=== PATIENT | female | born 1990 | race African-American/Black ===

== ENCOUNTER → 2022-02-02 | Outpatient (CLI) | payer MEDICAID, SELFPAY ==
--- NOTE | 2022-02-02 10:24 | US_ITS ---
STUDY: SECOND AND THIRD TRIMESTER OBSTETRICAL ULTRASOUND: Baby A REASON FOR EXAM: Female, 31 years old anatomy, twins, rule out accreta LMP: 07/18/2021. TECHNIQUE: Transabdominal TECHNICAL QUALITY: Adequate. PRIOR ULTRASOUND: None. FINDINGS: There is aThe fetus is in an transverse lie with the head on the maternal left side. There is demonstrated cardiac activity with a heart rate of 147 bpm. There is a normal amniotic fluid volume. The largest amniotic fluid pocket measures 7.1 cm x 3.9 cm. The amniotic fluid index (EROS) is within normal limits. The placenta is posterior in location and is not low lying. There are Grade 0 placental changes. The cervix measures 4.4 cm in length. The adnexal regions are not visualized. BIOMETRY: BPD: 5.13 cm: 21 weeks, 4 days HC: 19.66 cm: 21 weeks, 6 days AC: 17.9 cm: 22 weeks, 5 days FL: 3.88 cm: 22 weeks, 3 days CI: 72.9% FL/BPD: 75.7% FL/HC: FL/AC: 21.7% HC/AC: 1.1 age by current US: 21 weeks, 6 days. MAI by current US: 06/09/2022. Estimated weight: 512 grams, +/- 77 grams, 1 %. Age by LMP: 28 weeks, 3 days. MAI by LMP: 04/24/2022. ANATOMY: Gender: Female Cranium: Normal lateral ventricles. Normal choroid plexus. Normal cerebellum. Normal cisterna magna. Normal face, nose and lips. Chest: Normal 4-chamber heart. Abdomen/Pelvis: Normal diaphragm. Normal stomach. Normal abdominal wall. Normal cord insertion. Normal 3 vessel cord. Normal kidneys. Normal bladder. Spine: Normal cervical spine. Normal thoracic spine. Normal lumbar spine. Normal sacrum. Extremities: Normal bilateral upper extremities. Normal bilateral lower extremities. IMPRESSION: There is a twin gestation. Twin A has a mean gestational age of 21 weeks and 6 days. Electronically Signed: Raulito Sanchez MD at 9:11 EDT , STUDY: SECOND AND THIRD TRIMESTER OBSTETRICAL ULTRASOUND: Baby B REASON FOR EXAM: Female, 31 years old anatomy, twins, rule out accreta LMP: 04/24/2022. TECHNIQUE: Transabdominal TECHNICAL QUALITY: Adequate. PRIOR ULTRASOUND: None. FINDINGS: There is a single intrauterine fetus. The fetus is in a variable presentation. There is demonstrated cardiac activity with a heart rate of 131 bpm. There is a normal amniotic fluid volume. The largest amniotic fluid pocket measures 10.3 cm x 4.9 cm. The amniotic fluid index (EROS) is within normal limits. The placenta is posterior in location and is not low lying. There are Grade 0 placental changes. The cervix measures 4.4 cm in length. The adnexal regions are not visualized. BIOMETRY: BPD: 5.38 cm: 22 weeks, 3 days HC: 20.7 cm: 22 weeks, 5 days AC: 18.8 cm: 23 weeks, 4 days FL: 3.99 cm: 22 weeks, 6 days CI: 73.9% FL/BPD: 74.2% FL/HC: FL/AC: 21.3% HC/AC: 1.1 age by current US: 22 weeks, 4 days. MAI by current US: 06/04/2022. Estimated weight: 571 grams, +/- 87 grams, 1 %. Age by LMP: 28 weeks, 3 days. MAI by LMP: 04/24/2022. ANATOMY: Gender: Female Cranium: Normal lateral ventricles. Normal choroid plexus. Normal cerebellum. Normal cisterna magna. Normal face, nose and lips. Chest: Normal 4-chamber heart. Abdomen/Pelvis: Normal diaphragm. Normal stomach. Normal abdominal wall. Normal cord insertion. Normal 3 vessel cord. Normal kidneys. Normal bladder. Spine: Normal cervical spine. Normal thoracic spine. Normal lumbar spine. Normal sacrum. Extremities: Normal bilateral upper extremities. Normal bilateral lower extremities. IMPRESSION: There is a twin gestation. Twin B estimated gestational age of 22 weeks and 4 days. Electronically Signed: Raulito Sanchez MD at 9:15 EDT , STUDY: FIRST TRIMESTER OBSTETRICAL ULTRASOUND REASON FOR EXAM: Female, 31 years old. Cervical length. LMP: 04/24/2022. TECHNIQUE: Transvaginal TECHNICAL QUALITY: Adequate. PRIOR ULTRASOUND: None. FINDINGS: Cervical length measures 4.4 cm. US/OB Anatomy Scan IMPRESSION: Cervical length measures 4.4 cm. Electronically Signed: Raulito Sanchez MD at 9:15 EDT ,
== END | disposition home or self-care (01) ==
LOC: US 10:24
PROVIDERS: Referring Provider Obstetrics & Gynecology; Visit Provider Obstetrics & Gynecology
DX: O30.003 Twin pregnancy, unspecified number of placenta and unspecified number of amniotic sacs, third trimester (principal); Z3A.22 22 weeks gestation of pregnancy
CPT/HCPCS: 76805; 76810; 76817

== ENCOUNTER → 2022-02-10 | Outpatient (CLI) | payer MEDICAID, SELFPAY ==
[2022-02-10 11:48] LABS: Absolute Lymphocyte Count 2.22 X10^3/uL (0.83-4.51); Absolute Neutrophil Count 9.6 X10^3/uL (2.0-7.7); Basophil# 0.05 X10^3/uL; Basophil% 0.4 % (0-1); Eosinophil# 0.06 X10^3/uL; Eosinophils% 0.5 % (0-5); Hematocrit 30.9 % (37-47); Hemoglobin 10.6 g/dL (12.0-15.0); Lymphocyte # 2.22 X10^3/ul (0.83-4.51); Lymphocyte % 17.8 % (19-41); Mean Corp Hgb Conc 34.3 g/dL (32-36); Mean Corpuscular Hgb 30.9 pg (27.0-32.0); Mean Corpuscular Volume 90.1 fL (81-99); Mean Platelet Vol. 9.6 fl (6.2-12.0); NRBC Flagged by Analyzer 0 % (0-5); Neutrophil # 9.58 X10^3/uL (2.7-7.7); Neutrophil % 76.6 % (47-70); Platelet Count 181 K/mm3 (150-450); RBC Distribution Width CV 13.7 % (11.6-14.6); RBC Distribution Width SD 45.2 fl (35.1-43.9); Red Blood Count 3.43 M/mm3 (4.2-5.4); White Blood Count 12.5 K/mm3 (4.4-11.0)
[2022-02-10 12:16] LABS: Glucose Challenge Gest 1H 50g 90 mg/dL (70-140)
== END | disposition home or self-care (01) ==
PROVIDERS: Referring Provider Obstetrics & Gynecology; Visit Provider Obstetrics & Gynecology
DX: Z34.93 Encounter for supervision of normal pregnancy, unspecified, third trimester (principal)
CPT/HCPCS: 36415; 82950; 85025

== ENCOUNTER 2022-03-03 19:04 | Emergency (ER) | payer MEDICAID, SELFPAY ==
[2022-03-03 19:05] VITALS: BP 157/64; PULSE 92; RESP 20; TEMP 36.8; O2SAT 97; BMI 44.7
[2022-03-03 19:21] VITALS: BP 132/69; PULSE 95; RESP 19; O2SAT 97
[2022-03-03 19:25] VITALS: O2SAT 97
[2022-03-03 20:18] VITALS: BP 124/64; PULSE 67; RESP 19; TEMP 36.8; O2SAT 98
--- NOTE | 2022-03-03 21:06 | EX.ED.VIS.UR ---
HPI HPI - URI History of Present Illness Chief Complaint: Shortness of Breath Narrative Narrative: Care of [id number] female presenting with cough and congestion since Monday. She states she has 2 children that are in have runny noses. They have not had any fevers and neither has she. She does complains of being rundown and having a cough. She did at home test for COVID-19 today at home and this was negative. Patient current 27 weeks . She is not had any complications. No vaginal bleeding or loss of fluid. No urinary complaints. ROS ROS ED Constitutional Constitutional ED: Reports chills; Denies fever(s) Eyes Eyes: Denies change in vision ENT ENT ED: Reports rhinorrhea and sore throat Cardiovascular Cardiovascular: Denies chest pain or palpitations Respiratory/Chest Respiratory/Chest: Reports cough and dyspnea Gastrointestinal Gastrointestinal: Denies abdominal pain or constipation Genitourinary Genitourinary ED: Denies dysuria or hematuria Musculoskeletal Musculoskeletal: Denies arthralgias or back pain Integumentary Denies abscess or Abrasions Neurologic Neurologic: Reports headache(s); Denies paresthesias Psychiatric Psychiatric: Denies anxiety or depression [facility] Medical History Hx of sexually transmitted disease Home Medications vits,calcium no.78-iron fumarate-folic acid 29 mg-1 mg tablet (Prenatabs FA) 1 tab PO DAILY 11/29/13 [History Last Taken 12/10/13 1 TAB] Allergy/AdvReac Type Severity Reaction Status Date / Time No Known Allergies Allergy Verified 03/03/22 19:09 Surgical History delivery delivered Social History adopted: No household members: children number of children: 4 current occupational status: unemployed pets and animals: No history of recent travel: Yes ([place]) out of state: Yes out of country: No sexually active: Yes Smoking Status: Current every day smoker tobacco type: cigarettes alcohol intake: never substance use type: does not use well-balanced diet: about half the time caffeine: Yes Type: coffee Number of servings: 1 during the past year weight has: remained stable what type of physical activity do you participate in: walking frequency: daily duration: 45-60 minutes/day daniel/oriental orthodox: Pentecostal seatbelt use: always do you feel safe at home: Yes EXAM Physical Exam Const Vital Signs: 03/03/22 19:05 03/03/22 19:21 03/03/22 19:25 Temperature 98.3 F Temperature Source Temporal Pulse Rate 92 95 Respiratory Rate 20 H 19 H Respiratory Effort Normal Non-Labored Respiratory Depth Normal Respiratory Pattern Normal Blood Pressure 157/64 H 132/69 H Blood Pressure Mean 95 90 Pulse Ox 97 97 Oxygen Delivery Method Room Air Room Air Room Air 03/03/22 20:18 Temperature 98.3 F Temperature Source Temporal Pulse Rate 67 Respiratory Rate 19 H Respiratory Effort Respiratory Depth Respiratory Pattern Blood Pressure 124/64 H Blood Pressure Mean 84 Pulse Ox 98 Oxygen Delivery Method Room Air Positive well nourished General Appearance ED: NAD; Negative for pallor HEENT Reports moist mucous membranes normocephalic and atraumatic Eyes PERRL and EOMs intact bilaterally Resp normal respiratory effort and clear to auscultation bilaterally Effort and Inspection: Negative for retractions Auscultation: Negative for rales, rhonchi or wheezes Cardio Rate: regular rate Rhythm: regular rhythm GI non-tender Neuro oriented x3 and CN's II-XII intact bilaterally Sensorium / Orientation: alert Motor Exam: strength 5/5 throughout Psych mental status grossly normal Skin General Skin Exam: Negative for jaundice or pallor MDM MDM MDM Narrative Medical decision making narrative: Patient presenting with a cough and some mild dyspnea. No history of asthma. Her lung exam is normal. Her vital signs are stable and she is afebrile. She is not hypoxic requiring oxygen. She tested her cell for COVID today at home and this was negative. I will get a chest x-ray here today to rule out pneumonia. Chest x-ray on my interpretation is no acute cardiopulmonary process and the radiologist does agree. Patient counseled on findings. She already had a negative COVID test.. Her lungs are clear to auscultation. I think she will likely has something viral. She is counseled to use Tylenol at home and drink plenty of fluids. Impression 1. Viral Lab Data Attestation: I reviewed the patient's lab results. Radiography Diagnostic Testing: Clinical Impression(s) from Imaging Studies Chest X-Ray 03/03/22 21:15 IMPRESSION: Normal x-ray examination of the chest. Electronically Signed: Monica Rodriguez MD at 21:42 EDT Reading Location ID and State: [id number] / Tel , Service support , Discharge Plan Triage Chief Complaint: Shortness of Breath ED Provider: Lex Hermosillo Dx/Rx/DC Orders Prescriptions: No Action Prenatabs FA 1 TABLET tablet 1 tab PO DAILY Primary Care Provider: Care Physician,No Primary Referrals: Care Physician,No Primary [Primary Care Provider] -
--- NOTE | 2022-03-03 21:15 | RAD_ITS ---
STUDY: X-RAY CHEST REASON FOR EXAM: Female, 31 years old. cough TECHNIQUE: Single AP portable view of the chest. COMPARISON: None. FINDINGS: The lungs are clear and expanded. There is no demonstrated pleural abnormality. Normal size heart. Normal mediastinum and brock. Normal visualized pulmonary arteries. Normal visualized aortic arch and descending thoracic aorta. Normal visualized thoracic spine. Normal visualized ribs, clavicles, and shoulders. There is no demonstrated abnormality of the visualized soft tissue structures of the upper abdomen. RAD/Chest 1 View (Portable) IMPRESSION: Normal x-ray examination of the chest. Electronically Signed: Monica Rodriguez MD at 21:42 EDT Reading Location ID and State: [id number] / Tel , Service support ,
[2022-03-03 22:04] VITALS: PULSE 78; RESP 16; O2SAT 96
[2022-03-03] MEDS: Acetaminophen 500 MG Tablet 1000 MG PO (22:28)
[2022-03-03 23:37] VITALS: PULSE 88; RESP 16; O2SAT 98
== END 2022-03-03 23:37 | disposition home or self-care (01) ==
PROVIDERS: Emergency Provider Student in an Organized Health Care Education/Training Program; Visit Provider Student in an Organized Health Care Education/Training Program
DX: O98.512 Other viral diseases complicating pregnancy, second trimester (principal); B34.9 Viral infection, unspecified; O99.332 Smoking (tobacco) complicating pregnancy, second trimester; F17.210 Nicotine dependence, cigarettes, uncomplicated; Z3A.27 27 weeks gestation of pregnancy
CPT/HCPCS: 71045; 87633; 87635; 99283; U0003; U0005

== ENCOUNTER → 2022-04-19 | Outpatient (CLI) | payer MEDICAID, SELFPAY ==
--- NOTE | 2022-04-19 15:12 | US_ITS ---
STUDY: SECOND AND THIRD TRIMESTER OBSTETRICAL ULTRASOUND - TWIN REASON FOR EXAM: Female, 31 years old. LMP: Growth TECHNIQUE: Transabdominal TECHNICAL QUALITY: Adequate. COMPARISON: 9.7.22 FINDINGS: There are two intrauterine fetuses. The uterine wall is normal. There is a competent closed cervical os. Fetus A demonstrates cardiac activity with a heart rate of 131 bpm. Fetus ?A? is in an cephalic position with transverse lie with the head on the maternal right side. Fetus B demonstrates cardiac activity with a heart rate of 133 bpm. Fetus B is in an transverse lie with the head on the maternal left side. FETUS B BIOMETRY: The largest amniotic fluid pocket measures 7.3 cm. The placenta is posterior in location and is not low lying. There are Grade 1 placental changes. The cervix measures cm in length: 3.8. BIOMETRY: BPD: 85 mm: 34 weeks, 1 days HC: 310 mm: 34 weeks, 5 days AC: 292 mm: 33 weeks, 1 days FL: 65 mm: 33 weeks, 4 days CI: 81 FL/AC: 22.3 FL/BPD: 76.8 HC/AC: 1.06 age by current US: 34 weeks, 0 days. MAI by current US: 1.3.23. Estimated weight: 2219 grams, +/- 333 grams, 66.2 %. age by prior US: 33 weeks, 2 days. MAI by prior US: 1.7.23. Age by LMP: 32 weeks, 5 days. MAI by LMP: 1.12.23. FETUS A BIOMETRY: The largest amniotic fluid pocket measures 8.5 cm. The placenta is posterior in location and is not low lying. There are Grade 1 placental changes. The cervix measures cm in length: 3.8. BIOMETRY: BPD: 86 mm: 34 weeks, 4 days HC: 310 mm: 34 weeks, 5 days AC: 289 mm: 32 weeks, 6 days FL: 64 mm: 33 weeks, 1 days CI: 81 FL/AC: 22.2 FL/BPD: 74.9 HC/AC: 1.07 age by current US: 34 weeks, 0 days. MAI by current US: 1.3.23. Estimated weight: 2176 grams, +/- 326 grams, 60 %. age by prior US: 32 weeks, 5 days. MAI by prior US: 06.09.22. Age by LMP: 32 weeks, 5 days. MAI by LMP: 06.09.22. IMPRESSION: Twin live intrauterine . Fetus A demonstrates cardiac activity with a heart rate of 131 bpm. Fetus ?A? is in an cephalic position with transverse lie with the head on the maternal right side. Fetus B demonstrates cardiac activity with a heart rate of 133 bpm. Fetus B is in an transverse lie with the head on the maternal left side. Electronically Signed: Odilon Christian MD at 18:29 EST Reading Location ID and State: [facility] / [place] , Service support , STUDY: SECOND AND THIRD TRIMESTER OBSTETRICAL ULTRASOUND - TWIN REASON FOR EXAM: Female, 31 years old. LMP: Growth TECHNIQUE: Transabdominal TECHNICAL QUALITY: Adequate. COMPARISON: 02.02.22 FINDINGS: There are two intrauterine fetuses. The uterine wall is normal. There is a competent closed cervical os. Fetus A demonstrates cardiac activity with a heart rate of 131 bpm. Fetus ?A? is in an cephalic position with transverse lie with the head on the maternal right side. Fetus B demonstrates cardiac activity with a heart rate of 133 bpm. Fetus B is in an transverse lie with the head on the maternal left side. FETUS B BIOMETRY: The largest amniotic fluid pocket measures 7.3 cm. The placenta is posterior in location and is not low lying. There are Grade 1 placental changes. The cervix measures cm in length: 3.8. BIOMETRY: BPD: 85 mm: 34 weeks, 1 days HC: 310 mm: 34 weeks, 5 days AC: 292 mm: 33 weeks, 1 days FL: 65 mm: 33 weeks, 4 days CI: 81 FL/AC: 22.3 FL/BPD: 76.8 HC/AC: 1.06 age by current US: 34 weeks, 0 days. MAI by current US: 1.3.23. Estimated weight: 2219 grams, +/- 333 grams, 66.2 %. age by prior US: 33 weeks, 2 days. MAI by prior US: 1.7.23. Age by LMP: 32 weeks, 5 days. MAI by LMP: 1.12.23. FETUS A BIOMETRY: The largest amniotic fluid pocket measures 8.5 cm. The placenta is posterior in location and is not low lying. There are Grade 1 placental changes. The cervix measures cm in length: 3.8. BIOMETRY: BPD: 86 mm: 34 weeks, 4 days HC: 310 mm: 34 weeks, 5 days AC: 289 mm: 32 weeks, 6 days FL: 64 mm: 33 weeks, 1 days CI: 81 FL/AC: 22.2 FL/BPD: 74.9 HC/AC: 1.07 age by current US: 34 weeks, 0 days. MAI by current US: 1.3.23. Estimated weight: 2176 grams, +/- 326 grams, 60 %. age by prior US: 32 weeks, 5 days. MAI by prior US: 1.12.23. Age by LMP: 32 weeks, 5 days. MAI by LMP: 1.12.23. US/OB Limited With Biometrics IMPRESSION: Twin live intrauterine . Fetus A demonstrates cardiac activity with a heart rate of 131 bpm. Fetus ?A? is in an cephalic position with transverse lie with the head on the maternal right side. Fetus B demonstrates cardiac activity with a heart rate of 133 bpm. Fetus B is in an transverse lie with the head on the maternal left side. Electronically Signed: Odilon Christian MD at 18:29 EST ,
== END | disposition home or self-care (01) ==
PROVIDERS: Referring Provider Obstetrics & Gynecology; Visit Provider Obstetrics & Gynecology
DX: O30.003 Twin pregnancy, unspecified number of placenta and unspecified number of amniotic sacs, third trimester (principal); Z3A.34 34 weeks gestation of pregnancy
CPT/HCPCS: 76816

== ENCOUNTER → 2022-05-13 | Outpatient (CLI) | payer MEDICAID, SELFPAY | END | disposition home or self-care (01) | PROVIDERS: Visit Provider Obstetrics & Gynecology | DX: O09.90 Supervision of high risk pregnancy, unspecified, unspecified trimester (principal) | CPT/HCPCS: 87081 ==

== ENCOUNTER 2022-05-18 05:37 | Inpatient (IN) | payer MEDICAID, SELFPAY ==
[2022-05-18] VITALS (16 sets, daily range): BP systolic 78–125; BP diastolic 49–80; PULSE 57–90; RESP 16–18; TEMP 36.1–36.8; O2SAT 95–100; BMI 45.8
--- NOTE | 2022-05-18 05:42 | NURSING ---
dr leigh udpated on the fact that pt just arrived and was late for AM c/s prep. this RN inquiring about whether to perform doppler for the twins or a continuous EFM tracing 20-30 min. JV states to simply obtain doppler for the twins. no EFM tracing needed at this time prior to c/s.
[2022-05-18] MEDS: Lactated Ringers 1,000 ML 999 ML IV (06:05)
--- NOTE | 2022-05-18 06:16 | HP.PCM.OB_ITS ---
HPI - General General Date of Admission: 05/18/22 HPI Narrative NIKKI HENRY, is a 31 y/o @ 37 weeks 1 day per ultrasound on 02/02/22, who presents to L&D for repeat section. She is with twins and the chorionicity is indeterminant per MFM. Recommendations are delivery at 37 weeks due to possibility of mono/di twins. She transferred to us in her 2nd trimester. She has a h/o 3 sections and has a set of twins at home also. This will be her second set of twins. She signed a title 19 tubal consent form but has changed her mind. Maternal Data Information MAI Calculator Estimated Delivery Date Method Current WG Current Estimate 06/07/22 Ultrasound #1 37w 1d Other Estimates 04/24/22 LMP (Uncertain) 43w 3d # 2 PFSH PFSH Medical History (Updated 05/18/22 @ 06:03 by Zuly Rahman) Anxiety Depression Hx of sexually transmitted disease Home Medications vits,calcium no.78-iron fumarate-folic acid 29 mg-1 mg tablet (Prenatabs FA) 1 tab PO DAILY 11/29/13 [History Last Taken 05/16/22 0 8:00] Allergy/AdvReac Type Severity Reaction Status Date / Time No Known Allergies Allergy Verified 05/18/22 05:57 Surgical History (Updated 05/18/22 @ 06:03 by Zuly Rahman) delivery delivered Previous section Social History adopted: No household members: children number of children: 4 current occupational status: unemployed pets and animals: No history of recent travel: Yes ([place]) out of state: Yes out of country: No sexually active: Yes Smoking Status: Current every day smoker tobacco type: cigarettes alcohol intake: never substance use type: does not use well-balanced diet: about half the time caffeine: Yes Type: coffee Number of servings: 1 during the past year weight has: remained stable what type of physical activity do you participate in: walking frequency: daily duration: 45-60 minutes/day daniel/gnosticism: Sikh seatbelt use: always do you feel safe at home: Yes History 7 Elective abortions 3 Hx Para 3 Spontaneous abortions Hx # Term Pregnancies Ectopic pregnancies Hx # Pregnancies Multiple births 1 # of living children 4 Past Pregnancies Del. Date Name GA/Weeks Outcome Route Bth Weight Gen Labor Lgth Anesthesia Del Locatn Provider FOB Unknown 12/25/13 [place] 41 live - full term Female 18+ hours epidural [facility] Dr. Villasenor Unknown 01/10/14 [place] 41 live - full term M ricardo [place], [place] Unknown 10/11/19 [facility] 38 live - full term Female spinal [place], [place] Delivery Date: Last Updated by: Manuela Lara female & male twins Visit Details Expected Delivery Route/Plan plan for repeat section Plans Covid status: [] Flu vaccine: [] Tdap vaccine: [] Rhogam: [] LARC form signed: [] Problem list reviewed and updated with the most current plan of care details and appropriate orders placed. Relevant counseling for the gestational age provided. Continue routine care and follow up unless otherwise noted in visit notes/problem list details OB Flowsheet Initial Weight: Not Recorded Date -?-?-?-?-?-?-?-?-?-?-?-?- EGA Weight BP Urine Prot -?-?-?-?-?-?-?-?-?-?-?-?- Glucose FHR FuHt Pres Dilation -?-?-?-?-?-?-?-?-?-?-?-?- Effaced St Visit Note 01/26/22 -?-?-?-?-?-?-?-?-?-?-?-?- 21w 1d 337 lb 130/64 -?-?-?-?-?-?--?-?-?-?-?-?- A 133 -?-?-?-?-?-?-?-?-?-?-?-?- B 140 A -?-?-?-?-?-?-?-?-?-?-?-?- B -?-?-?-?-?-?-?-?-?-?-?-?- A -?-?-?-?-?-?-?-?-?-?-?-?- B A JV- twins on bed side scan with head circumf measuring approx 21-22 weeks. needs formal scan [place]. -?-?-?-?-?-?-?-?-?-?-?-?- B 02/10/22 -?-?-?-?-?-?-?-?-?-?-?-?- 23w 2d 330 lb 116/74 -?-?-?-?-?-?-?-?-?-?-?-?- A 145 -?-?-?-?-?-?-?-?-?-?-?-?- B 145 A -?-?-?-?-?-?-?-?-?-?-?-?- B -?-?-?-?-?-?-?-?-?-?-?-?- A -?-?-?-?-?-?-?-?-?-?-?-?- B A SM- no vb lof go od fm no regular ctx -?-?-?-?-?-?-?-?-?-?-?-?- B 03/10/22 -?-?-?-?-?-?-?-?-?-?-?-?- 27w 2d 330 lb 118/66 Negative -?-?-?-?-?-?-?-?-?-?-?-?- Negative A 140 -?-?-?-?-?-?-?-?-?-?-?-?- B 145 A -?-?-?-?-?-?-?-?-?-?-?-?- B -?-?-?-?-?-?-?-?-?-?-?-?- A -?-?-?-?-?-?-?-?-?-?-?-?- B A SM- no vb lof go od fm x 2, having persistent URI symptoms. ordered z pack and benzonatate. s/p ER visit. lungs clear no pneumonia -?-?-?-?-?-?-?-?-?-?-?-?- B 03/25/22 -?-?-?-?-?-?-?-?-?-?-?-?- 29w 3d 333 lb 112/68 Negative -?-?-?-?-?-?-?-?-?-?-?-?- Negative A 140 -?-?-?-?-?-?-?-?-?-?-?-?- B 130 A -?-?-?-?-?-?-?-?-?-?-?-?- B -?-?-?-?-?-?-?-?-?-?-?-?- A -?-?-?-?-?-?-?-?-?-?-?-?- B A JV- pt due for f etal growth scan. will attempt to order with MFM. if insurance is an issue we will order with [facility]. -?-?-?-?-?-?-?-?-?-?-?-?- B 04/01/22 -?-?-?-?--?-?-?-?-?-?-?-?- 30w 3d 332 lb 2 oz 110/70 Nega tive -?-?-?-?-?-?-?-?-?-?-?-?- Negative A 144 -?-?-?-?-?-?-?-?-?-?-?-?- B 135 A -?-?-?-?-?-?-?-?-?--?-?-?- B -?-?-?-?-?-?-?-?-?-?-?-?- A -?-?-?-?-?-?-?-?-?-?-?-?- B A LC- no vb,ctx,lo f.good fm. 28 week labs normal. has ultrasound scheduled. -?-?-?-?-?-?-?-?-?-?-?-?- B 04/08/22 -?-?-?-?-?-?-?-?-?-?-?-?- 31w 3d 333 lb 135/76 -?-?-?-?-?-?-?-?-?-?-?-?- A 133 -?-?-?-?-?-?-?-?-?-?-?-?- B 133 A Breech -?-?-?-?-?-?-?-?-?-?-?-?- B Breech -?-?-?-?-?-?-?-?-?-?-?-?- A -?-?-?-?-?-?-?-?-?-?-?-?- B A JV- pt had/has a n appt on 04/14 but may have been changed. she will call them [place] as she needs growth scan scheduled. -?-?-?-?-?-?-?-?-?-?-?-?- B 04/29/22 -?-?-?-?-?-?-?-?-?-?-?-?- 34w 3d 334 lb 6 oz 122/76 -?-?-?-?-?-?-?-?-?-?-?-?- A 139 -?-?-?-?-?-?-?-?-?-?-?-?- B 141 A Transverse -?-?-?-?-?-?-?-?-?-?-?-?- B Transverse -?-?-?--?-?-?-?-?-?-?-?-?- A -?-?-?-?-?-?-?-?-?-?-?-?- B A JV- growth scan shows 60th and 62% growth. no lof, vaginal bleeding or dec fm. no dm, htn, or discordance. no need for nsts. continue growths q 4 weeks. plan for 38 week rpt. -?-?-?-?-?-?-?-?-?-?-?-?- B 05/06/22 -?-?-?-?-?-?-?-?-?-?-?-?- 35w 3d 335 lb 8 oz 125/75 Nega tive -?-?-?-?-?-?-?-?-?-?-?-?- Negative A 140 -?-?-?-?-?-?-?-?-?-?-?-?- B 150 A Transverse -?-?-?-?-?-?-?-?-?-?-?-?- B Transverse -?-?-?-?-?-?-?-?-?-?-?-?- A -?-?-?-?-?-?-?-?-?-?-?-?- B A JV- long discuss ion on delivery of placentas. pt very adamant that the placentas stay attached to the babies after the babies are being passed off to the peds. risks discussed and the conversation was resolved but patient left upset. plan for rpt cs on 06/01/22 -?-?-?-?-?-?-?-?-?-?-?-?- B 05/13/22 -?-?-?-?-?-?-?-?-?-?-?--?- 36w 3d 334 lb 2 oz 133/83 Nega tive -?-?-?-?-?-?-?-?-?-?-?-?- Negative A 166 -?-?-?-?-?-?-?-?-?-?-?-?- B 125 A Transverse -?-?-?-?-?--?-?-?-?-?-?-?- B Transverse -?-?-?-?-?-?-?-?-?-?-?-?- A -?-?-?-?-?-?-?-?-?-?-?-?- B A JV- pt is unhapp y with her scheduled date. she now wants to wait until 06/03/22 which will make her JV- pt is unhappy with her s cheduled date. she now wants to wait until 06/03/22 which will make her 39 weeks and 1 day -?-?-?-?-?-?-?-?-?-?-?-?- B new records came from [facility] in dicting recommendations to deliver no later than 38 weeks and if can not rule out monochorionicity from prior scan, recommendation is to deliver at 37 weeks. first scan did not indicate this therfore, will deliver at 37 weeks per [facility]. 05/18/22 -?-?-?-?-?-?-?-?-?-?-?-?- 37w 1d 337 lb 11.971 oz 119/73 -?-?-?-?-?-?-?-?-?-?-?-?- A -?-?-?-?-?-?-?-?-?-?-?-?- B A -?-?-?-?-?-?-?-?-?-?-?-?- B -?-?-?-?-?-?-?-?-?-?-?-?- A -?-?-?-?-?-?-?-?-?-?-?-?- B A -?-?-?-?-?-?-?-?-?-?-?-?- B ROS Constitutional Constitutional: Denies change in weight, fatigue, fever(s), headache(s), poor appetite or weakness Eyes Eyes: Denies blurry vision, change in vision, seeing flashes or spots in vision ENT HEENT: Denies dizziness, headache(s), loss taste/smell or sore throat Cardiovascular Cardiovascular: Denies chest pain, dizziness, dyspnea, irregular heart rhythm, leg edema, palpitations, rapid heart rate or vomiting Respiratory/Chest Respiratory/Chest: Denies chest tightness, cough, dyspnea or breast pain Gastrointestinal Gastrointestinal: Denies abdominal pain, anorexia, constipation, cramping, diarrhea, hemorrhoids, vomiting or weight changes Genitourinary Genitourinary: Denies dysuria, flank pain, genital lesions, genital pain, urinary frequency or urinary urgency Musculoskeletal Musculoskeletal: Denies back pain, difficulty walking, joint pain, limited range of motion, muscle cramps or numbness Integumentary Integumentary: Denies lesions or unusual bruising Neurologic Neurologic: Denies abnormal movements, abnormal speech, dizziness, numbness, seizure-like activity or syncope Psychiatric Psychiatric: Denies anxiety, behavioral changes, change in appetite, change in libido, cognitive impairment, confusion, depression, difficulty concentrating, hallucinations or suicidal thoughts Endocrine Endocrinology: Denies excessive sweating, polydipsia or polyuria Hematologic/Lymphatic Hematologic/Lymphatic: Denies easy bleeding, easy bruising or lymphadenopathy Allergic/Immunologic Allergic/Immunologic: Denies itchy eyes, lip swelling, seasonal rhinorrhea, rhinitis, throat swelling, tongue swelling, eczemia, wheezing or asthma Vital Signs Vital Signs Vital Signs: Weight Weight: 337 lb 11.971 oz Body Mass Index (BMI) 45.8 Physical Exam Const alert, oriented x3, no apparent distress and healthy appearing General Appearance: cooperative; Negative for anxious HEENT normocephalic Face and Sinus: normal facial exam Eyes EOMs intact bilaterally and no scleral icterus General Eye: normal appearance of both eyes Neck full ROM and supple Lymph Lymphatic: no lymphadenopathy noted Chest Chest: abnormal inspection of the chest Resp normal respiratory effort Effort and Inspection: able to speak in complete sentences Cardio regular rate GI soft to palpation and non-tender Inspection: gravid Palpation: soft; Negative for tender Back/Spine no CVA tenderness Extremity normal to inspection, full ROM and no clubbing, cyanosis or edema General Extremity: Negative for calf tenderness or edema Skin Lesions: no lesions Rashes: no rashes Psych mental status grossly normal Labs Labs Labs: Blood Type O POSITIVE Antibody Screen NEGATIVE Hct 30.9 % (37-47) L Hgb 10.6 g/dL (12.0-15.0) L Obstetrics US Glucose 1 Hr 50 gm 90 mg/dL (70-140) Rhogam given: No Assessment & Plan (1) : QUALIFIERS: Weeks of gestation: 36 weeks Qualified Code(s): Z3A.36 - 36 weeks gestation of COMMENT: discussed genetic & carrier testing (2) Supervision of high risk , antepartum: COMMENT: , MAI 06/09/22, PC- [place], [place], Villasenor & Sire(TWINS) (3) Twin gestation in second trimester: COMMENT: diagnosed at 20 week bedside scan. formal scan ordered. appears di/di on bedside scan. pt has another set of twins at home. growth scans q 4 weeks nl growth 04/19/23 unable to formally diagnose chronicity- recommended per [facility] to deliver at 37 weeks. scheduled for 05/18/22 at 7:10 am PLAN: plan for repeat section today ERAS protocol ordered. may require 3 grams ancef based on weight at time of admission (4) Obesity: COMMENT: early GCT ordered (5) Anemia affecting , antepartum: COMMENT: OTC Fe daily (6) delivery delivered: COMMENT: x3. requests repeat to be done at the noon time slot due to child psychiatrist issues deciding on tubal. title 19 signed 04/29/22 RLTCS BS scheduled 05/18 @ 7:10 with JV- pt declines this time. working on rescheduling.
[2022-05-18 06:23] LABS: Absolute Lymphocyte Count 2.38 X10^3/uL (0.83-4.51); Absolute Neutrophil Count 8.1 X10^3/uL (2.0-7.7); Basophil# 0.03 X10^3/uL; Basophil% 0.3 % (0-1); Eosinophil# 0.02 X10^3/uL; Eosinophils% 0.2 % (0-5); Hematocrit 30.7 % (37-47); Lymphocyte # 2.38 X10^3/ul (0.83-4.51); Lymphocyte % 21.1 % (19-41); Mean Corp Hgb Conc 32.6 g/dL (32-36); Mean Corpuscular Hgb 27.9 pg (27.0-32.0); Mean Corpuscular Volume 85.5 fL (81-99); Monocyte# 0.55 X10^3/uL; Monocyte% 4.9 % (0-10); NRBC Flagged by Analyzer 0 % (0-5); Neutrophil # 8.13 X10^3/uL (2.7-7.7); Neutrophil % 71.8 % (47-70); Platelet Count 235 K/mm3 (150-450); RBC Distribution Width CV 13.9 % (11.6-14.6); RBC Distribution Width SD 43.2 fl (35.1-43.9); Red Blood Count 3.59 M/mm3 (4.2-5.4); White Blood Count 11.3 K/mm3 (4.4-11.0)
[2022-05-18] MEDS: Acetaminophen 500 MG Tablet 1000 MG PO ×3 (06:33→19:02)
[2022-05-18 06:46] LABS: Amphetamine Urine VISTA NEGATIVE (<1000 ng/mL); Barbiturate Urine VISTA NEGATIVE (< 200 ng/mL); Benzodiazepine Urine VISTA NEGATIVE (< 200 ng/mL); Cocaine Urine VISTA NEGATIVE (< 300 ng/mL); Ecstacy Urine VISTA NEGATIVE (< 500 ng/mL); Methadone Urine VISTA NEGATIVE (< 300 ng/mL); PCP Urine VISTA NEGATIVE (< 25 ng/mL); THC Urine VISTA NEGATIVE (< 50 ng/mL); Vista UDS pH Range 5
--- NOTE | 2022-05-18 06:46 | NURSING ---
doppler US of baby A : 126, baby B : 137 per pee RN at bedside.
[2022-05-18] MEDS: Sodium Citrate/Citric Acid 30 ML UDC PO (06:54)
[2022-05-18] MEDS: Lactated Ringers 1,000 ML 150 ML IV (07:10)
[2022-05-18] MEDS: Cefazolin 2 GM in 0.9% Normal Saline 100 ML IV (07:22)
[2022-05-18] MEDS: Oxytocin 15 Units/NS 250ml 15 UNITS/250 ML IV.SOLN 83 UNITS IV (08:45)
--- NOTE | 2022-05-18 08:55 | OP.PCM_ITS ---
Assessment & Plan (1) : QUALIFIERS: Weeks of gestation: 36 weeks Qualified Code(s): Z3A.36 - 36 weeks gestation of COMMENT: discussed genetic & carrier testing (2) Supervision of high risk , antepartum: COMMENT: , MAI 06/09/22, PC- [place], , [place] & Sire(TWINS) (3) Twin gestation in second trimester: COMMENT: diagnosed at 20 week bedside scan. formal scan ordered. appears di/di on bedside scan. pt has another set of twins at home. growth scans q 4 weeks nl growth 04/19/23 unable to formally diagnose chronicity- recommended per [facility] to deliver at 37 weeks. scheduled for 05/18/22 at 7:10 am (4) Obesity: COMMENT: early GCT ordered (5) Anemia affecting , antepartum: COMMENT: OTC Fe daily (6) delivery delivered: COMMENT: x3. requests repeat to be done at the noon time slot due to school childcare attendant issues deciding on tubal. title 19 signed 04/29/22 RLTCS BS scheduled 05/18 @ 7:10 with JV- pt declines this time. working on rescheduling. Maternal Data Information MAI Calculator Estimated Delivery Date Method Current WG Current Estimate 06/07/22 Ultrasound #1 37w 1d Other Estimates 04/24/22 LMP (Uncertain) 43w 3d # 2 Final MAI: 06/07/21 Final MAI Source: [place] >20 weeks Gestational age: 37 weeks 1 day Doctor Who Attended Delivery: Shell Cano Details Operative Information Date of Procedure: 05/18/22 Pre-Operative Diagnosis: , twin gestation, unknown chronicity, prior section x 3 Post-Operative Diagnosis: , twin gestation, unknown chronicity, prior c esarean section x 3 Classification: Scheduled Procedure Type: low transverse dock loader #1: Susie Dunn Type of Anesthesia: Spinal Anesthesiologist: Kelvin Virk Antibiotic Given: Ancef 3 grams IV x1 Estimated Blood Loss: 400cc Findings Description of Procedure: The patient is a 31 y/o presented for repeat at 37 weeks for twin gestation. Spinal anesthesia was placed without difficulty. Araujo catheter was placed. The patient was placed in the dorsal supine position with leftward tilt. Patient was prepped and draped in the normal sterile fashion. Pfannenstiel skin incision was made with the scalpel and carried through to the underlying layer of fascia with the scalpel. Fascia was nicked in the midline and the incision extended laterally. The rectus bellies were dissected off superiorly and inferiorly with out complication both sharply and bluntly. The peritoneum was entered digitally. The incision was stretched and a low transverse uterine incision was made with the scalpel. The first infant's buttocks was presenting first. The buttocks was grasped and delivered up to the shoulders, The body was rotated and the head was delivered atraumatically. The baby was found to be vigorous and after 30 seconds the cord was clamped and cut. The baby was passed off to the testing analyst . The second water bag was ruptured and baby b's head was delivered atraumatically followed by the anterior and posterior shoulders without complication the rest of the delivered. The cord was clamped and cut and the infant was handed off to awaiting nurse. The placenta was delivered spontaneously immediately following and was noted to be intact and have a three-vessel cord. The uterus was exteriorized cleared of all clots and debris, and the incision was closed in a double layer closure using #1 Vicryl and #1 Monocryl. The ovaries and fallopian tubes were noted to be within normal limits. The uterus was returned to the maternal abdomen and gutters were cleared of all clots and debris. The peritoneum was closed with 3-0 Monocryl in a running fashion. Fascia was closed with 0 PDS in a running fashion. Subcutaneous tissue was copiously irrigated and the skin was closed with 3-0 Monocryl in a subcuticular fashion. Mepilex dressing was applied without complication. Patient was taken to recovery in stable condition. It was discussed with the patient that based on the clinical information obtained during this encounter, combined with her history, at this time I would recommend repeat sections for future deliveries if further pregnancies are desired. Presentation: Positive for Mohsen Breech (baby A mohsen breech and b vertex ) Amniotic Membrane Rupture Type: Artificial Amniotic Fluid Description: Clear Placental Delivery Description: Manual Removal Placenta Disposition: [facility] Cord Entanglement: None Infant A Gender: Female (1 minute): 8 (5 minute): 9 Delayed Cord Clamping: Yes Complications Risks of Surgery Discussed w/Patient: Bleeding, Anesthesia Risks, Infection, Need for Future C-Sections and Injury to surrounding structure(s) including bowel and bladder Baby B Information Amniotic Membrane Rupture Type: Artificial Presentation: Vertex Operative Information Mode of Delivery: Cord Vessel Description: 3 Vessels Cord Entanglement: None B gender: Female (1 minute): 8 (5 minute): 9 Delayed Cord Clamping: Yes Multi Select Codes Urinary/Genital Urinary/Genital CPT Codes: 87436 delivery+PP Care(RAMONITA) (twin delivery )
[2022-05-18 09:07] LABS: Rubella IgG Equiv (Nonreactive); Syphilis Antibodies Non-reactive
[2022-05-18 09:23] LABS: HIV - WCH Non-Reactive (Nonreactive); Hepatitis B Surface Antigen Non-Reactive (Nonreactive); Hepatitis C Antibody Non-Reactive (Nonreactive)
[2022-05-18] MEDS: HYDROmorphone 1 MG/ML Syringe IV (09:24)
[2022-05-18] MEDS: 0.9% Saline Lock 10 ML Syringe IV ×3 (09:24→22:11)
[2022-05-18] MEDS: Ketorolac 30 MG/ML Syringe IV ×3 (09:57→22:10)
--- NOTE | 2022-05-18 12:00 | NURSING ---
Pt pad changed for several small clots. Moderate amount of rubra lochia noted. Fundus firm at 1 below umbilicus. will continue to monitor.
[2022-05-18] MEDS: Lactated Ringers 1,000 ML 100 ML IV (12:36)
--- NOTE | 2022-05-18 13:23 | CPS ---
started by nursing
[2022-05-18] MEDS: Enoxaparin 40 MG/0.4 ML Syringe SC (22:11)
[2022-05-19] MEDS: 0.9% Saline Lock 10 ML Syringe IV ×3 (00:17→06:53)
[2022-05-19] MEDS: HYDROmorphone 1 MG/ML Syringe IV ×2 (00:17→06:54)
[2022-05-19 00:20] VITALS: BP 108/48; PULSE 76; RESP 17
[2022-05-19] MEDS: Acetaminophen 500 MG Tablet 1000 MG PO ×4 (00:56→19:47)
[2022-05-19] MEDS: Ketorolac 30 MG/ML Syringe IV (04:24)
[2022-05-19 04:44] VITALS: BP 125/55; PULSE 75; RESP 17; TEMP 36.3
[2022-05-19 04:44] LABS: Hematocrit 23.8 % (37-47); Hemoglobin 7.5 g/dL (12.0-15.0); Mean Corp Hgb Conc 31.5 g/dL (32-36); Mean Corpuscular Hgb 28.1 pg (27.0-32.0); Mean Corpuscular Volume 89.1 fL (81-99); Mean Platelet Vol. 9.8 fl (6.2-12.0); Platelet Count 161 K/mm3 (150-450); RBC Distribution Width CV 14.1 % (11.6-14.6); RBC Distribution Width SD 45.3 fl (35.1-43.9); Red Blood Count 2.67 M/mm3 (4.2-5.4); White Blood Count 8.2 K/mm3 (4.4-11.0)
--- NOTE | 2022-05-19 05:35 | NURSING ---
Lab work from 043, hgb went from 10.0 to 7.5. Notified Yolanda PENALOZA charge nurse, pt tired but otherwise asymptomatic. Last BP 125/55, other VS WNL. Will notify dayshift.
--- NOTE | 2022-05-19 07:46 | PCM.PN.OB ---
Subjective Subjective Patient doing well without complaints. Tolerating PO. Ambulating and voiding without difficulty. Feeding well. Denies chest pain, shortness of breath, calf pain/swelling, fevers, chills, lightheadedness. Objective Data Objective Data Vital Signs: Vital Signs Temp Pulse Resp BP Pulse Ox O2 Del Method 97.4 F L 75 17 125/55 H 98 Room Air 05/19/22 04:44 05/19/22 04:44 05/19/22 04:44 05/19/22 04:44 05/18/22 17:26 05/18/22 17:26 Oxygen Delivery Method Room Air Weight: 337 lb 11.971 oz Body Mass Index (BMI) 45.8 Intake & Output: Intake and Output for Last 24 Hours 05/17/22 05/18/22 05/19/22 23:59 23:59 23:59 Intake Total 2845.83 / 2845.83 Output Total 200 / 200 1250 / 1250 Balance 2645.83 / 2645.83 -1250 / -1250 Lab / Micro Data Result Diagrams: 05/19/22 04:37 Labs: Laboratory Results - last 24 hr 05/18/22 05:45: Chlam trachomat DNA PCR Cancelled, N.gonorrhoeae DNA (PCR) Cancelled 05/18/22 06:05: Blood Type O POSITIVE, Antibody Screen NEGATIVE 05/18/22 06:05: Syphilis Total Ab Non-reactive, Rubella IgG Antibody Equiv 05/18/22 06:05: Hep Bs Antigen Non-Reactive, Hepatitis C Antibody Non-Reactive, HIV 1&2 Antibody Non-Reactive 05/19/22 04:37: WBC 8.2, RBC 2.67 L, Hgb 7.5 L, Hct 23.8 L, MCV 89.1, MCH 28.1, MCHC 31.5 L, RDW Std Deviation 45.3 H, RDW Coeff of Maria 14.1, Plt Count 161, MPV 9.8 Physical Exam Const alert and oriented x3 General Appearance: cooperative Orientation / Consciousness: awake, oriented to person, oriented to place and oriented to time HEENT normocephalic Eyes PERRL Neck full ROM Resp normal respiratory effort GI soft to palpation GI Narrative: FF below U. Dressing dry and intact Palpation: tender other (appropriately) Assessment & Plan (1) delivery delivered: COMMENT: LTCS JV 05/18/22 twin girls [place] and [place] (2) Anemia: COMMENT: asymptomatic. Minimal rubra PLAN: Plan s/p LTCS PPD # 1 1. routine post care 2. breast feeding- support given 3. rh positive 4. rubella immune 5. Currently asymptomatic for anemia. Will monitor for symptoms and watch vaginal bleeding.
[2022-05-19 08:46] VITALS: BP 105/47; PULSE 72; RESP 18; TEMP 36.4; O2SAT 98
[2022-05-19] MEDS: Senna/Docusate Sodium 1 Tablet PO (11:52)
[2022-05-19] MEDS: Ibuprofen 600 MG Tablet PO ×2 (11:53→18:19)
[2022-05-19] MEDS: oxyCODONE 5 MG Tablet PO ×2 (11:57→18:19)
[2022-05-19 12:25] LABS: Hematocrit 24.9 % (37-47); Hemoglobin 7.9 g/dL (12.0-15.0); Mean Corp Hgb Conc 31.7 g/dL (32-36); Mean Corpuscular Hgb 28.1 pg (27.0-32.0); Mean Corpuscular Volume 88.6 fL (81-99); Mean Platelet Vol. 9.8 fl (6.2-12.0); Platelet Count 181 K/mm3 (150-450); RBC Distribution Width CV 14.3 % (11.6-14.6); RBC Distribution Width SD 45.9 fl (35.1-43.9); Red Blood Count 2.81 M/mm3 (4.2-5.4); White Blood Count 7.9 K/mm3 (4.4-11.0)
[2022-05-19 14:19] VITALS: BP 105/56; PULSE 75; RESP 16; TEMP 36.6
--- NOTE | 2022-05-19 16:32 | NURSING ---
This RN taking over care of this patient as of 1629, report given by Cait Carroll RN.
--- NOTE | 2022-05-19 18:42 | NURSING ---
Patient reported to this RN that she took out her own IV because it was bothering her and no one had taken it out yet. This RN assessed the IV site and it looked intact, no bleeding noted, and a bandaid was offered but the patient declined.
--- NOTE | 2022-05-19 18:47 | NURSING ---
MMR vaccine offered to patient due to the patient being equivical for Rubella, patient declined at this time. MMR information sheet from [facility] offered for patient to view but declined the paper.
[2022-05-19 20:15] VITALS: BP 124/62; PULSE 70; RESP 17; TEMP 36.8
[2022-05-19] MEDS: Enoxaparin 40 MG/0.4 ML Syringe SC (22:16)
[2022-05-20] MEDS: Ibuprofen 600 MG Tablet PO ×4 (00:30→17:53)
[2022-05-20] MEDS: Acetaminophen 500 MG Tablet 1000 MG PO ×4 (01:58→21:28)
[2022-05-20 02:00] VITALS: BP 116/63; PULSE 73; RESP 17; TEMP 36.6
[2022-05-20] MEDS: oxyCODONE 5 MG Tablet PO ×2 (04:33→17:57)
--- NOTE | 2022-05-20 04:48 | NURSING ---
Patient found sleeping on couch with infant. RN placed back into crib and reminded to practice safe sleep.
[2022-05-20 07:50] VITALS: BP 105/49; PULSE 68; RESP 16; TEMP 36.4
[2022-05-20] MEDS: Senna/Docusate Sodium 1 Tablet PO (08:10)
--- NOTE | 2022-05-20 08:20 | PN.OBGYN_ITS ---
Subjective Subjective Patient doing well without complaints. Tolerating PO. Ambulating and voiding without difficulty. Feeding well. Denies chest pain, shortness of breath, calf pain/swelling, fevers, chills, lightheadedness. She states that oxy 5 mg is not helping and wants to take 10 mg instead. She wants to wait until tomorrow to go home Objective Data Objective Data Vital Signs: Vital Signs Temp Pulse Resp BP Pulse Ox O2 Del Method 97.8 F 73 17 116/63 98 Room Air 05/20/22 02:00 05/20/22 02:00 05/20/22 02:00 05/20/22 02:00 05/19/22 08:46 05/19/22 08:46 Oxygen Delivery Method Room Air Weight: 337 lb 11.971 oz Body Mass Index (BMI) 45.8 Intake & Output: Intake and Output for Last 24 Hours 05/18/22 05/19/22 05/20/22 23:59 23:59 23:59 Intake Total 2845.83 / 2845.83 Output Total 200 / 200 1750 / 1750 Balance 2645.83 / 2645.83 -1750 / -1750 Lab / Micro Data Result Diagrams: 05/19/22 12:11 Labs: Laboratory Results - last 24 hr 05/19/22 12:11: WBC 7.9, RBC 2.81 L, Hgb 7.9 L, Hct 24.9 L, MCV 88.6, MCH 28.1, MCHC 31.7 L, RDW Std Deviation 45.9 H, RDW Coeff of Maria 14.3, Plt Count 181, MPV 9.8 Assessment & Plan (1) Anemia: COMMENT: asymptomatic. Minimal rubra PLAN: s/p LTCS PPD # 2 1. routine post care 2. breast feeding- support given 3. rh positive 4. rubella immune 5. asymptomatic anemia and hg stablized yesterday. continue iron therapy at home 6. dc planning- home tomorrow with oxycodone + naproxen. pt states that she has iron at home already. (2) Obesity: COMMENT: early GCT ordered (3) delivery delivered: COMMENT: LTCS JV 05/18/22 twin girls [place] and [place]
--- NOTE | 2022-05-20 08:23 | DCINST_ITS ---
Discharge Instructions Diet Discharge Diet: No restrictions Activity Discharge Activity: May Not Drive (for 2 weeks or while taking narcotic pain medications.), May Shower and May Take a Tub Bath (in 7 days.) May resume sexual activity in: 4-6 weeks Weight Bearing Status: Full weight bearing Lifting Restrictions: 20 pounds Dressing / Incision Call your doctor if your incision/area has: Continuous Slow Oozing, Sudden Increased Bleeding, Increased Pain/ Swelling, Increased Redness and Foul Smelling Discharge Call your doctor if you observe: Fever of 101 or Higher and Using more than 1 pad per hour Suture Line Care: Avoid Pulling/Pushing and Avoid Pinching/Bending Cleanse incision/area with: Soap & Water and Keep Dressing Clean & Dry Follow Up Care Please Follow Up With: Katie Villasenor DO When: Call [phone] to make an appointment for an incision check in 1-2 weeks. Test Results: Test results from this visit will be discussed in further detail at your follow- up appointment, if applicable. Discharge Plan Admission Admit Date/Time: 05/18/22 05:37 Primary Reason for Your Visit: section Attending Provider: Katie Villasenor Primary Care Provider: Kate Kaba Primary Discharge Orders/Prescriptions Prescriptions: New naproxen 500 mg tablet 500 mg PO BID PRN (Reason: pain) Qty: 40 0RF oxycodone-acetaminophen [Percocet] 5-325 mg tablet 1 tab PO Q4H PRN (Reason: pain) 7 Days Qty: 30 0RF Rx Instructions: 1-2 tabs q 4 hrs as needed for pain No Action Prenatabs FA 1 TABLET tablet 1 tab PO DAILY Referrals / Follow Up: Care PhysicianKate Primary [Primary Care Provider] - Disposition Disposition (needs filled in before D/C Order can be placed): Home, Self Care
[2022-05-20 14:00] VITALS: PULSE 88; RESP 16; TEMP 36.6; O2SAT 98
--- NOTE | 2022-05-20 18:12 | NURSING ---
Many times this shift I have spoken to this patient and she doesn't answer/respond. Noted one time to be sitting on couch nursing baby and was sound asleep. Reminded of safe sleep. I had mentioned to her several times to let me know if Motrin/Tylenol aren't helping enough for pain and I would give her oxy. She did not ask for oxy and At 1800 she said to me, the doctor said I could have oxy and I haven't had any all day. I reminded her it was to be given as needed , she closed her eyes and didn't respond. Pt noted to have ear piece in her ear.
[2022-05-20] MEDS: Enoxaparin 40 MG/0.4 ML Syringe SC (21:28)
[2022-05-20 22:45] VITALS: BP 136/60; PULSE 71; RESP 16; TEMP 36.8; O2SAT 96
[2022-05-21] MEDS: Ibuprofen 600 MG Tablet PO ×2 (00:22→06:17)
[2022-05-21 01:43] VITALS: PULSE 76; RESP 16; TEMP 36.9; O2SAT 100
[2022-05-21] MEDS: Acetaminophen 500 MG Tablet 1000 MG PO (03:51)
--- NOTE | 2022-05-21 06:40 | NURSING ---
When entering room, this RN saw baby A spitting up, mob woke up and took baby and placed her mouth over baby's nose and mouth and sucked out spit up. This RN handed bulb suction to mob and educated on its use. This RN then stepped out to get something and upon return, baby A was in mob bed alone while mob was in the bathroom with door shut. This RN placed infant in crib and educated mob.
--- NOTE | 2022-05-21 07:22 | PN.OBGYN_ITS ---
Subjective Subjective Patient doing well without complaints. Tolerating PO. Ambulating and voiding without difficulty. feeding well. Denies chest pain, shortness of breath, calf pain/swelling, fevers, chills, lightheadedness. Objective Data Objective Data Vital Signs: Vital Signs Temp Pulse Resp BP Pulse Ox O2 Del Method 98.4 F 76 16 136/60 H 100 Room Air 05/21/22 01:43 05/21/22 01:43 05/21/22 01:43 05/20/22 22:45 05/21/22 01:43 05/21/22 01:43 Oxygen Delivery Method Room Air Weight: 153.2 kg Body Mass Index (BMI) 45.8 Intake & Output: Intake and Output for Last 24 Hours 05/19/22 05/20/22 05/21/22 23:59 23:59 23:59 Output Total 1750 / 1750 Balance -1750 / -1750 Lab / Micro Data Result Diagrams: 05/19/22 12:11 ROS Constitutional Constitutional: Reports systems reviewed and no addt'l complaints, except as documented Cardiovascular Cardiovascular: Reports systems reviewed and no addt'l complaints, except as documented Respiratory/Chest Respiratory/Chest: Reports systems reviewed and no addt'l complaints, except as documented Gastrointestinal Gastrointestinal: Reports systems reviewed and no addt'l complaints, except as documented Physical Exam Const alert, oriented x3 and no apparent distress HEENT Head and Scalp: atraumatic Resp normal respiratory effort GI soft to palpation and non-tender Inspection: incision intact, healing well and drainage (none) Bimanual Exam - Vag & Uterus: uterus non-tender Uterus Palpation: uterus fundus firm (below Umbilicus) Assessment & Plan (1) delivery delivered: COMMENT: LTCS JV 05/18/22 twin girls [place] and [place] (2) Obesity: COMMENT: early GCT ordered (3) Anemia: COMMENT: asymptomatic. Minimal rubra PLAN: Plan s/p LTCS PPD # 3 1. routine post care 2. breast feeding- support given 3. rh positive 4. rubella immune
--- NOTE | 2022-05-21 07:22 | PCM.DC.SUM ---
Providers Date of Admission: 05/18/22 Primary Care Physician: No Primary Care Phys Reason For Visit: REPEAT C SECTION Diagnosis Discharge Diagnosis (1) delivery delivered: Status: Acute Code(s): O82 - Encounter for delivery without indication (2) Obesity: Status: Acute Code(s): E66.9 - Obesity, unspecified (3) Anemia: Status: Acute Code(s): D64.9 - Anemia, unspecified Plan s/p LTCS PPD # 3 1. routine post care 2. breast feeding- support given 3. rh positive 4. rubella immune Medications at Discharge Home Medications vits,calcium no.78-iron fumarate-folic acid 29 mg-1 mg tablet (Prenatabs FA) 1 tab PO DAILY 11/29/13 naproxen 500 mg tablet 500 mg PO BID PRN pain #40 tabs 05/20/22 oxycodone-acetaminophen 5 mg-325 mg tablet (Percocet) 1 tab PO Q4H PRN pain 7 days #30 tabs 05/20/22 Hospital Course Summary of Care Provided Hospital Course: patient presented for [facility] and had an uncomplicated delivery of twins. Postoperatively patient had return of bowel and bladder function and was ambulating well, tolerating adequate p.o., and was stable for discharge to home on postop day #3. Discharge medications naproxen and Percocet. Follow-up in office in 2 weeks for incision check in 6 weeks for visit. Routine post section diet and activity instructions. Weight / BMI Weight Weight: 153.2 kg Body Mass Index (BMI) 45.8 ABG / Lab / Microbiology Data Result Diagrams: 05/19/22 12:11 D/C Instructions Discharge Diet: No restrictions Discharge Activity: May Not Drive (for 2 weeks or while taking narcotic pain medications.), May Shower and May Take a Tub Bath (in 7 days) May shower in (days): 0 May resume sexual activity in: 4-6 weeks Weight Bearing Status: Full weight bearing Call your doctor if your incision/area has: Continuous Slow Oozing, Sudden Increased Bleeding, Increased Pain/ Swelling, Increased Redness and Foul Smelling Discharge Call your doctor if you observe: Fever of 101 or Higher and Using more than 1 pad per hour Suture Line Care: Avoid Pulling/Pushing and Avoid Pinching/Bending Cleanse incision/area with: Soap & Water and Keep Dressing Clean & Dry Please Follow Up With: Katie Villasenor DO When: Call [phone] to make an appointment for an incision check in 1-2 weeks. Meaningful Use Info Meaningful Use Diagnoses (Choose all that apply): None applicable Discharge Plan Admission Admit Date/Time: 05/18/22 05:37 Primary Reason for Your Visit: section Attending Provider: Katie Villasenor Primary Care Provider: Care PhysicianKate Primary Discharge Orders/Prescriptions Prescriptions: New naproxen 500 mg tablet 500 mg PO BID PRN (Reason: pain) Qty: 40 0RF oxycodone-acetaminophen [Percocet] 5-325 mg tablet 1 tab PO Q4H PRN (Reason: pain) 7 Days Qty: 30 0RF Rx Instructions: 1-2 tabs q 4 hrs as needed for pain No Action Prenatabs FA 1 TABLET tablet 1 tab PO DAILY Referrals / Follow Up: Care Physician,Kate Primary [Primary Care Provider] - Disposition Disposition (needs filled in before D/C Order can be placed): Home, Self Care
== END 2022-05-21 10:45 | disposition home or self-care (01) | DRG 540 ==
PROVIDERS: Nurse Practitioner Women's Health; Admitting Provider Obstetrics & Gynecology; Visit Provider Obstetrics & Gynecology
PROC: 10D00Z1 Extraction of Products of Conception, Low, Open Approach (ICD-10-PCS; CPT 59514; principal; 2022-05-18 06:55)
DX: O34.211 Maternal care for low transverse scar from previous cesarean delivery (principal); Z37.2 Twins, both liveborn; O30.043 Twin pregnancy, dichorionic/diamniotic, third trimester; O99.214 Obesity complicating childbirth; O32.1XX1 Maternal care for breech presentation, fetus 1; F17.210 Nicotine dependence, cigarettes, uncomplicated; O99.02 Anemia complicating childbirth; Z3A.37 37 weeks gestation of pregnancy; O99.334 Smoking (tobacco) complicating childbirth
CPT/HCPCS: 80307; 85025; 85027; 86703; 86762; 86780; 86803; 86850; 86900; 86901; 87340; 99218; 99406; J7120; A4216; G0378; J2405

== ENCOUNTER 2023-06-21 09:26 | Emergency (ER) | payer MEDICAID, SELFPAY ==
[2023-06-21 09:27] VITALS: BP 150/70; PULSE 97; RESP 14; TEMP 36.6; O2SAT 97; BMI 46.1
[2023-06-21] MEDS: dexAMETHasone 4 MG Tablet PO (09:50)
--- NOTE | 2023-06-21 09:54 | EX.ED.DYSGE1 ---
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 She presents with sore throat that started Monday. She denies documented fever. She denies cough. She does report mild aches. She denies headache, visual, ocular auditory symptoms. There is no history medic fever, heart murmur, SBE and she is on no immunosuppressive meds. Prior similar symptoms: No (Patient states she has not been ill since she was in high school.) Recent Illness/Hospitalization: No [facility] Medical History Anxiety Depression Hx of sexually transmitted disease Supervision of high risk , antepartum Twin gestation in second trimester Home Medications vits,calcium no.78-iron fumarate-folic acid 29 mg-1 mg tablet (Prenatabs FA) 1 tab PO DAILY 11/29/13 [History Last Taken 05/16/22 08:00] naproxen 500 mg tablet 500 mg PO BID PRN pain #40 tabs 05/20/22 [Rx Last Taken Unknown] nystatin 100,000 unit/gram topical powder 1 applic topical BID #30 grams 06/21/22 [Rx Last Taken Unknown] Allergy/AdvReac Type Severity Reaction Status Date / Time No Known Allergies Allergy Verified 06/21/23 09:28 Surgical History delivery delivered Previous section Social History adopted: No household members: children number of children: 4 current occupational status: unemployed pets and animals: No history of recent travel: Yes ([place]) out of state: Yes out of country: No sexually active: Yes Smoking Status: Current every day smoker tobacco type: cigarettes alcohol intake: never substance use type: does not use well-balanced diet: about half the time caffeine: Yes Type: coffee Number of servings: 1 during the past year weight has: remained stable what type of physical activity do you participate in: walking frequency: daily duration: 45-60 minutes/day daniel/faith: [employer] seatbelt use: always do you feel safe at home: Yes ROS ROS ED Constitutional Constitutional ED: Denies chills, fever(s), subjective or sweats Eyes Eyes: Denies blurry vision, change in vision or diplopia ENT ENT ED: Reports sore throat; Denies ear pain or rhinorrhea Cardiovascular Cardiovascular: Denies chest pain or palpitations Respiratory/Chest Respiratory/Chest: Denies cough, dyspnea or dyspnea on exertion Gastrointestinal Gastrointestinal: Denies nausea or vomiting Musculoskeletal Musculoskeletal: Reports myalgias; Denies back pain or neck pain Integumentary Denies rash Neurologic Neurologic: Denies headache(s) Allergic/Immunologic Allergic/Immunologic ED: Reports mouth swelling; Denies tongue swelling or urticaria EXAM Physical Exam Const Vital Signs: 06/21/23 09:27 Temperature 97.9 F Temperature Source Temporal Pulse Rate 97 Respiratory Rate 14 Blood Pressure 150/70 H Blood Pressure Mean 96 Pulse Ox 97 Oxygen Delivery Method Room Air Positive well nourished, well developed and obese Constitutional Narrative: Patient appears ill. She has a muffled/hot potato voice. General Appearance ED: well developed and NAD; Negative for cyanotic, diaphoretic or pallor Nutritional Appearance: obese HEENT Reports moist mucous membranes HEENT Narrative: Patient has enlarged tonsils with exudate noted bilaterally. Uvula is midline. Uvula is not displaced. There is no swelling of the soft palate. Eyes PERRL and EOMs intact bilaterally Eyes Narrative: Trachea is midline. There is no stridor. There is shotty bilateral cervical lymphadenopathy. Neck supple and no JVD General: Negative for tenderness Resp normal respiratory effort and clear to auscultation bilaterally Cardio regular rate, regular rhythm, S1 normal heart sound, S2 normal heart sound and no murmurs Neuro oriented x3 and CN's II-XII intact bilaterally Sensorium / Orientation: alert Psych mental status grossly normal Skin no rashes or lesions noted, no wounds and skin turgor normal General Skin Exam: Negative for jaundice or pallor MDM MDM MDM Narrative Medical decision making narrative: Patient with exudative tonsillitis. This may represent strep tonsillitis, etc. tonsillitis due to mononucleosis. This patient's been ill only for 2 days Monospot was not obtained since sensitivity is low. CBC was obtained to assess for atypical lymphocytes. Rapid strep was also obtained. Because of the amount of swelling patient received a dose of Decadron in the emergency department. Lab Data Attestation: I reviewed the patient's lab results. Lab results narrative: White count is elevated. Is no atypical lymphocytes. Rapid strep was positive. Labs: Laboratory Results - last 24 hr 06/21/23 09:55 WBC 13.1 H RBC 4.31 Hgb 11.3 L Hct 35.0 L MCV 81.2 MCH 26.2 L MCHC 32.3 RDW Std Deviation 41.4 RDW Coeff of Maria 13.9 Plt Count 207 MPV 9.7 Immature Gran % (Auto) 0.500 Neut % (Auto) 82.4 H Lymph % (Auto) 10.0 L [place] % (Auto) 6.6 Eos % (Auto) 0.1 Baso % (Auto) 0.4 Absolute Neuts (auto) 10.8 H Absolute Lymphs (auto) 1.31 Nucleated RBC % 0 Treatment and Re-Evaluation :: Patient was informed of her laboratory results. She preferred injection. She received 1,200,000 units of LA Bicillin. Discharge Plan Triage Chief Complaint: Sore Throat ED Provider: Rj Davis Dx/Rx/DC Orders Clinical Impression: Exudative tonsillitis, Acute streptococcal tonsillitis, Dysphonia, Elevated BP without diagnosis of hypertension Instructions: ED Hypertension, To Be Confirmed, ED Pharyngitis, Strep (Confirmed) Prescriptions: No Action nystatin 100,000 unit/gram powder 1 applic topical BID Qty: 30 1RF Prenatabs FA 1 TABLET tablet 1 tab PO DAILY naproxen 500 mg tablet 500 mg PO BID PRN (Reason: pain) Qty: 40 0RF Stand Alone Forms: ED Work / School Excuse Primary Care Provider: Care Physician,No Primary Referrals: Care Physician,No Primary [Primary Care Provider] - Doctor,Your [Non-Staff] - 1-2 Weeks Activity Restrictions/Additional Instructions: 1. Salt water gargles 6-10 times a day 2. You may use Chloraseptic spray or Cepastat lozenges for your throat pain. 3. Blood pressure is elevated. You need to have this checked by your doctor. Your doctor's name is listed on your insurance card issued to you by care source Disposition Disposition: Home, Self Care
[2023-06-21 10:04] LABS: Absolute Lymphocyte Count 1.31 X10^3/uL (0.83-4.51); Absolute Neutrophil Count 10.8 X10^3/uL (2.0-7.7); Basophil# 0.05 X10^3/uL; Basophil% 0.4 % (0-1); Eosinophil# 0.01 X10^3/uL; Eosinophils% 0.1 % (0-5); Hemoglobin 11.3 g/dL (12.0-15.0); Lymphocyte # 1.31 X10^3/ul (0.83-4.51); Mean Corp Hgb Conc 32.3 g/dL (32-36); Mean Corpuscular Hgb 26.2 pg (27.0-32.0); Mean Corpuscular Volume 81.2 fL (81-99); Mean Platelet Vol. 9.7 fl (6.2-12.0); Monocyte# 0.87 X10^3/uL; Monocyte% 6.6 % (0-10); NRBC Flagged by Analyzer 0 % (0-5); Neutrophil # 10.84 X10^3/uL (2.7-7.7); Neutrophil % 82.4 % (47-70); Platelet Count 207 K/mm3 (150-450); RBC Distribution Width CV 13.9 % (11.6-14.6); RBC Distribution Width SD 41.4 fl (35.1-43.9); Red Blood Count 4.31 M/mm3 (4.2-5.4); White Blood Count 13.1 K/mm3 (4.4-11.0)
[2023-06-21] MEDS: Penicillin G Benzathine 1.2 MU/2 ML Syringe 1.19999999999999996 MU IM (11:13)
[2023-06-21 11:35] VITALS: BP 141/78; PULSE 88; RESP 16; O2SAT 99
== END 2023-06-21 11:36 | disposition home or self-care (01) ==
PROVIDERS: Emergency Provider Emergency Medicine; Visit Provider Emergency Medicine
DX: J03.00 Acute streptococcal tonsillitis, unspecified (principal); Z68.42 Body mass index [BMI] 45.0-49.9, adult; R03.0 Elevated blood-pressure reading, without diagnosis of hypertension; R49.0 Dysphonia; E66.9 Obesity, unspecified; F17.210 Nicotine dependence, cigarettes, uncomplicated; Z20.828 Contact with and (suspected) exposure to other viral communicable diseases
CPT/HCPCS: 85025; 87651; 96372; 99282

== ENCOUNTER 2023-11-06 12:37 | Emergency (ER) | payer MEDICAID, SELFPAY ==
[2023-11-06 12:38] VITALS: BP 167/91; PULSE 92; RESP 26; TEMP 36.4; O2SAT 92; BMI 46.6
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
[2023-11-06] MEDS: HYDROcodone Bitartrate/Apap 5/325 Tablet PO (13:27)
[2023-11-06] MEDS: Lidocaine 1% (20 ml mdv) 20 ML Vial INFILT (13:28)
--- NOTE | 2023-11-06 13:35 | RAD_ITS ---
STUDY: X-RAY - RIGHT KNEE REASON FOR EXAM: Female, 33 years old. Injury/Pain TECHNIQUE: 4 view(s) of the knee. COMPARISON: None. FINDINGS: Normal visualized distal femur. Normal visualized proximal tibia and fibula. Normal proximal tibiofibular articulation. Normal medial femorotibial compartment. Normal lateral femorotibial compartment. Normal patellofemoral articulation. The soft tissue structures are unremarkable. RAD/Knee 4 or More Views IMPRESSION: Normal x-ray examination of the knee. Electronically Signed: Raulito Sanchez MD at 14:03 EDT ,
--- NOTE | 2023-11-06 13:35 | RAD_ITS ---
RAD/Lumbar Spine 2 or 3 Views IMPRESSION: Disc space narrowing at the L5-S1 level. Electronically Signed: Raulito Sanchez MD at 14:04 EDT ,
--- NOTE | 2023-11-06 13:35 | RAD_ITS ---
STUDY: X-RAY - RIGHT HAND REASON FOR EXAM: Female, 33 years old. Injury/Pain TECHNIQUE: 3 view(s) of the hand. COMPARISON: None. FINDINGS: Normal radiocarpal articulation. Normal distal radioulnar joint. Normal visualized carpal bones. Normal carpal articulations Normal carpometacarpal articulation of the thumb. Normal second through fifth carpometacarpal joints. Normal metacarpi. Normal metacarpophalangeal joint of the thumb. Normal interphalangeal joint of the thumb. Normal proximal and distal phalanges of the thumb. Normal metacarpophalangeal joints of the second through fifth fingers. Normal proximal and distal interphalangeal joints of the second through fifth fingers. Normal phalanges of the second through fifth fingers. The soft tissue structures are unremarkable. RAD/Hand Min 3 Views IMPRESSION: Normal x-ray examination of the hand. Electronically Signed: Raulito Sanchez MD at 14:03 EDT ,
--- NOTE | 2023-11-06 13:35 | RAD_ITS ---
STUDY: X-RAY - RIGHT TIBIA AND FIBULA REASON FOR EXAM: Female, 33 years old. Injury/Pain TECHNIQUE: 3 view(s) of the tibia and fibula were obtained. COMPARISON: None. FINDINGS: Normal visualized tibia. Normal visualized fibula. The soft tissue structures are unremarkable. RAD/Tibia & Fibula 2 Views IMPRESSION: Normal x-ray examination of the tibia and fibula. Electronically Signed: Raulito Sanchez MD at 14:04 EDT ,
--- NOTE | 2023-11-06 14:35 | CT_ITS ---
STUDY: CT BRAIN WITHOUT CONTRAST REASON FOR EXAM: Female, 33 years old. Head injury RADIATION DOSAGE (If Supplied By Facility): CTDIvol = ( 47.06 ) mGy, DLP = ( 890.33 ) mGycm TECHNIQUE: Transaxial CT imaging of the brain was performed without administration of intravenous contrast material. Individualized dose optimization techniques were used for this CT. COMPARISON: No relevant priors. FINDINGS: Scalp hematoma overlying the superior aspect of the left occipital bone. There is hyperostosis frontalis internus. Calcification of the cerebral falx. Normal size ventricles and extra-axial spaces for the patient''s age. Normal white matter tracts of the cerebral hemispheres. Normal basal ganglia and thalami. Normal brainstem. Normal cerebellum. There is no intracranial hemorrhage. There are no findings of an acute ischemic infarction. Nodular mucosal thickening of both maxillary sinuses worse on the left side. CT/Brain/Head without Contrast IMPRESSION: Normal unenhanced CT scan of the brain. Scalp hematoma overlying the superior aspect of the left occipital bone. Hyperostosis frontalis interna with the calcification of the cerebral falx. Electronically Signed: Raulito Sanchez MD at 15:22 EDT ,
--- NOTE | 2023-11-06 14:36 | ED.RN ---
this rn goes in to check on patient and see how she is doing and the pain medication is working. pt has a friend at the bedside and is voicing concern regarding a lump on the back of her head. pt is requesting a CT scan at this time. dr. liang made aware.
[2023-11-06 14:37] VITALS: BP 133/115; PULSE 72; RESP 18; O2SAT 95
[2023-11-06 16:00] VITALS: BP 136/111; PULSE 75; RESP 18; O2SAT 96
[2023-11-06] MEDS: Morphine 4 MG/ML Syringe IM (17:04)
[2023-11-06] MEDS: Cephalexin 500 MG Capsule PO (18:22)
--- NOTE | 2023-11-06 18:33 | ED.RN ---
when pt was up for re-eval this rn noted that pt was picking at wound. pt was picking debris out from underneath the nail and piece of skin. pt had asked this rn if she would take tweezers and pick out the sticks from her wound. this rn declines and states that she should also not pick at wound- the provider would clean out the wound how he sees fit when he comes back in and numbs her. later, when this rn goes back into room after Dr. Marrero sutured finger to apply bacitracin and bulky dressing per md order. when this rn goes into room pt is sobbing. this rn asks pt why she is crying and begins to clean wound with saline and chlorahexidine soap. pt states to this rn that pt had an awful experience when being sutured. pt tells this rn that when the provider was numbing her finger, the provider poked all the way through her finger twice. she states that dr. marrero was rude when he told her that he did not in fact poke through the entire finger. pt states also that provider was scraping the wound out and did not clean the wound out after scraping it. pt states the provider shoved debris under the skin flap and first suture and continued to suture the rest. pt states she felt as though she was not respected by the provider. this rn finishes washing the wound with soap and saline water and goes to notify the charge nurse of situation. CA Charles accompanies this rn into the room and pt proceeds to tell charge nurse what had happened. Araceli and this RN attempt to further irrigate any possible debris out of the wound. pt pulls the skin flap and pulls her nail back in order to access the wound. pt stated to both RN's cant you just take these out, im just going to cut it off when i get home. this rn and Araceli inform pt that the skin flap was sutured on for protection and wound healing. pt begins to argue with staff that there was further debris under the nail and she wants it to heal properly. once pt is satisfied with the irrigation, charge nurse Araceli gives pt the business card of Dandy Sorto, patient advocate so she can confide in him regarding her care. this rn proceeds to apply bacitracin to the wound, a telfa, cling wrap gauze, and then coban wrap for protection. this rn then leaves the room to grab pts prescribed atb and discharge paperwork. when this rn returns, pt had taken off the bulky dressing. pt states i was squeezing it and it just slipped off. this rn states understanding and pt asks for another wrap that is less bulky. pt tells this rn what dressing that she wants to do- she wants a telfa wrap and coban only. this rn attempts to place dressing, pt pushes rn hand out of the way when this rn attempts to fold the sides over the top. pt states no, wrap it on the bottom. this rn attempts to wrap coban and pt states no, unwrap it and then wrap it around my finger. it hurts when you pull it. this rn pulls coban out and pt begins to wrap it herself. this rn attempts to give pt atb. pt states is this some shit that [employer] wants me to take? this rn explains to pt that she is being given atb to prophylactically prevent infection. pt asks for injection atb and this rn explains that the dr did not prescribe it that way and it was only avaliable in pill form. 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 pt then declines to take the atb. pt states its not even going to do anything and if i cant get it or afford it whats the point? pt then changes her mind and takes the atb. when prescriptions were being explained pt asks this rn what kind of pain medication she would be given and if it would make her sleepy. this rn explains to patient that it is essentially percocet and it is hydrocodone and tylenol mixture. pt states this is bullshit, its not even going to do anything. its just tylenol. this rn apologizes for pts poor experience and pt states the nursing care was great but she was not happy with the provider. this rn reiterated to pt to call patient advocate if she feels necessary. this rn tells pt that she is free to get dressed. this rn offers pt a wheelchair and pt states how to do even know if i can get up if they only did xrays, that only looks at bones. im going to need an mri. what did the cat scan show? did it show a concussion? this rn explains to pt that you are unable to detect a concussion on ct scan but it may occur. this rn explains to pt the s/sx of concussion and how to manage at home if need be. when this rn tells pt to be sure to follow up with primary care so they can keep an eye on wound healing and if she were to need further imaging. pt states understanding and was tearful throughtout the entire concersation. charge nurse and dr. marrero updated.
== END 2023-11-06 18:50 | disposition home or self-care (01) ==
PROVIDERS: Emergency Provider Emergency Medicine; Visit Provider Emergency Medicine
DX: S09.90XA Unspecified injury of head, initial encounter (principal); S61.011A Laceration without foreign body of right thumb without damage to nail, initial encounter; S80.11XA Contusion of right lower leg, initial encounter; S80.01XA Contusion of right knee, initial encounter; S39.012A Strain of muscle, fascia and tendon of lower back, initial encounter; S70.11XA Contusion of right thigh, initial encounter; F17.210 Nicotine dependence, cigarettes, uncomplicated; V09.20XA Pedestrian injured in traffic accident involving unspecified motor vehicles, initial encounter
CPT/HCPCS: 12001; 70450; 72100; 73130; 73564; 73590; 96372; 99282

== ENCOUNTER 2024-01-19 15:57 | Emergency (ER) | payer MEDICAID, SELFPAY ==
[2024-01-19 15:57] VITALS: BP 140/77; PULSE 62; RESP 18; TEMP 36.9; O2SAT 100; BMI 47.3
--- NOTE | 2024-01-19 16:48 | ED.VIS.FEGU ---
HPI HPI - Female History of Present Illness Chief Complaint: Female C/O Detail of Chief Complaint: Patient presents because of potential exposure to someone who had sex with Informant: patient Associated Symptoms Associated Symptoms: Negative for Dysuria, Frequency, Urgency, Hematuria or Missed Period Narrative Narrative: Patient presents because of potential exposure to someone who had sex with a man. Patient claims she was seen at the urgent care and was sent here and that the urgent care was not able to treat her. The urgent care called to determine if we do HIV testing since they no longer test for HIV. Patient never checked in as a patient at the [facility] urgent care. Patient states she had relations less than 48 hours ago with a male who she has had relations with in the past. He is from out of town so felt it was safe to have relations with him. There was no use of condom or any type of protection. Patient states there is a rumor that a well-known male in the community has put on Facebook that he has HIV. There is rumor that the gentleman she slept with is bisexual because he had relations with this gentleman who is HIV positive. Patient has not asked the gentleman she slept with if he is by or not. They did not use condoms or any form of protection. Patient states she was on with an online physician and they treat with medication for people who are sexually active to prevent HIV. They recommended that she be treated. Spoke with pharmacy. They state there is a CDC recommendation. I informed the pharmacist of her history. They recommend I contact ID to determine if she qualifies for treatment or not. Patient was told that I contacting infectious disease per pharmacist recommendation and would follow that person's recommendation. She states that it is her health and her life and she wants treated. I again informed her that I would follow the recommendations of ID and if they recommended treatment I would write a prescription for treatment and if they did not recommend treatment I would not treat. Patient became flustered. Prior similar symptoms: No Recent Illness/Hospitalization: No PFSH PFSH Medical History Depression Anxiety Twin gestation in second trimester Hx of sexually transmitted disease Supervision of high risk , antepartum Home Medications ?Medication ?Instructions ?Recorded ?Last Taken ?Type cephalexin 500 mg capsule 500 mg PO Q6 #40 CAPSULES 11/06/23 Unknown Rx hydrocodone-acetaminophen 5-325mg 1 tab PO Q6H PRN PRN Pain 3 days 11/06/23 Unknown Rx 5mg-325mg #10 TABLETS emtricitabine 200 mg-tenofovir 1 tab PO DAILY #28 tabs 01/19/24 Unknown Rx disoproxil fumarate 300 mg tablet (Truvada) raltegravir 400 mg tablet 400 mg PO BID #28 tabs 01/19/24 Unknown Rx (Isentress) Allergy/AdvReac Type Severity Reaction Status Date / Time No Known Allergies Allergy Verified 01/19/24 15:58 Surgical History Previous section delivery delivered Social History adopted: No household members: children number of children: 4 current occupational status: unemployed pets and animals: No history of recent travel: Yes ([place]) out of state: Yes out of country: No sexually active: Yes Smoking Status: Current every day smoker tobacco type: cigarettes alcohol intake: never substance use type: does not use well-balanced diet: about half the time caffeine: Yes Type: coffee Number of servings: 1 during the past year weight has: remained stable what type of physical activity do you participate in: walking frequency: daily duration: 45-60 minutes/day daniel/mosque: Protestant seatbelt use: always do you feel safe at home: Yes ROS ROS ED Constitutional Constitutional ED: Denies chills or fever(s) Genitourinary Genitourinary ED: Reports other Details: Patient has no gynecologic symptoms. ; Denies dysuria, hematuria or urinary frequency EXAM Physical Exam Const Vital Signs: 01/19/24 15:57 Temperature 98.4 F Temperature Source Temporal Pulse Rate 62 Respiratory Rate 18 Blood Pressure 140/77 H Blood Pressure Mean 98 Pulse Ox 100 Oxygen Delivery Method Room Air Positive well nourished and well developed General Appearance ED: well developed and NAD HEENT Reports moist mucous membranes Eyes PERRL and EOMs intact bilaterally Resp normal respiratory effort Cardio regular rate and regular rhythm Neuro oriented x3 and CN's II-XII intact bilaterally Sensorium / Orientation: alert Skin no rashes or lesions noted and no wounds MDM MDM MDM Narrative Medical decision making narrative: The [facility] urgent care was contacted. We were informed that she was never seen because she did not register. They did not decline treatment they informed her that they do not do HIV testing. She was not told that we would treat either. The nurse practitioner for the clinic called and asked if we did HIV testing. The corporate legal secretary informed the person who called from the [facility] that we do do testing. Spoke with Dr. Potts for ID. Recommended treatment. He recommended Truvada 1 tablet daily and RALTEGRAVIR one twice a day. Course of treatment is 28 days. Discharge Plan Triage Chief Complaint: Female C/O ED Provider: Rj Davis Dx/Rx/DC Orders Clinical Impression: Unprotected sexual intercourse, Encounter for medical screening examination Prescriptions: New emtricitabine-tenofovir (TDF) [Truvada] 200-300 mg tablet 1 tab PO DAILY Qty: 28 0RF Isentress 400 mg tablet 400 mg PO BID Qty: 28 0RF No Action hydrocodone-acetaminophen 5-325 mg tablet 1 tab PO Q6H PRN PRN (Reason: Pain) 3 Days Qty: 10 0RF cephalexin 500 mg capsule 500 mg PO Q6 Qty: 40 0RF Primary Care Provider: Care Physician,No Primary Referrals: Care Physician,No Primary [Primary Care Provider] - Activity Restrictions/Additional Instructions: 1. Recommend following up with the health department 2. The name of your physician is located on your insurance card issued to you by care source. Recommend following up with that person. 3. One of the medications as recommended by the infectious disease expert and the CDC is not covered by your insurance. 4. It is in your best interest to use condoms to decrease likelihood of sexually transmitted disease. Print Language: Bulgarian Disposition Disposition: Home, Self Care
== END 2024-01-19 17:30 | disposition home or self-care (01) ==
PROVIDERS: Emergency Provider Emergency Medicine; Visit Provider Emergency Medicine
DX: Z20.2 Contact with and (suspected) exposure to infections with a predominantly sexual mode of transmission (principal); F17.210 Nicotine dependence, cigarettes, uncomplicated
CPT/HCPCS: 99282

== ENCOUNTER → 2024-03-08 | Outpatient (CLI) | payer MEDICAID, SELFPAY ==
[2024-03-08 11:55] LABS: HIV - WCH Non-Reactive (Nonreactive); Hepatitis B Surface Antigen Non-Reactive (Nonreactive); Hepatitis C Antibody Non-Reactive (Nonreactive); Syphilis Antibodies Non-reactive
== END | disposition home or self-care (01) ==
LOC: LABSPEC 10:10
PROVIDERS: Referring Provider Obstetrics & Gynecology; Visit Provider Obstetrics & Gynecology
DX: Z11.3 Encounter for screening for infections with a predominantly sexual mode of transmission (principal)
CPT/HCPCS: 36415; 86703; 86780; 86803; 87340; 87491; 87591